=== PATIENT | male | born 1980 | race Caucasian/White ===

== ENCOUNTER 2017-03-27 07:58 | Emergency (ER) | payer OTHER ==
[2017-03-27] MEDS ORDERED: Ondansetron HCl/PF 4 MG/2 ML Vial ONE (08:24)
[2017-03-27] MEDS ORDERED: Ketorolac Tromethamine 30 MG/ML VIAL ONE (08:24)
[2017-03-27 08:32] LABS: #Basophils 0.1 thou/uL (0.0-0.2); #Eosinphils 0.1 thou/uL (0.0-0.7); #Lymphocytes 1.2 thou/uL (1.20-3.40); #Monocytes 0.4 thou/uL (0.11-0.59); %Basophils 0.7 % (0.0-1.0); %Eosinophils 0.8 % (0.0-10.0); %Lymphocytes 13.9 % (21.0-51.0); %Monocytes 4.9 % (0.0-10.0); %Neutrophils 79.8 % (42.0-75.0); Hemoglobin 15.8 g/dL (14.0-18.0); Mean Corpuscular HGB CONC 34.4 g/dL (32.0-36.0); Mean Corpuscular Volume 84.2 fl (80.0-94.0); Mean Platelet Volume 9.4 fL (7.4-10.4); Platelet Count 173 thou/uL (130-400); RBC Distribution Width 11.1 % (11.5-14.5); Red Blood Cell (RBC) Count 5.47 mill/uL (4.70-6.10); White Blood Cell (WBC) Count 8.8 thou/uL (4.8-10.8)
[2017-03-27 08:45] LABS: ALT (SGPT) 43 U/L (8-55); AST (SGOT) 26 U/L (5-34); Albumin 4.3 g/dL (3.5-5.0); Alkaline Phosphatase 83 U/L (40-150); Anion Gap 14 mmol/L (10-20); BUN (Urea Nitrogen) 15 mg/dL (8.9-20.6); Bilirubin, Total 0.6 mg/dL (0.2-1.2); Calc. Creatinine Clearance 0 mL/min (70-130); Calcium 9.6 mg/dL (7.8-10.44); Carbon Dioxide 28 mmol/L (22-29); Chloride 103 mmol/L (98-107); Estimated GFR-MDRD 66; Globulin 2.6 g/dL (2.4-3.5); Glucose 110 mg/dL (70-105); Potassium 4.4 mmol/L (3.5-5.1); Protein, Total 6.9 g/dL (6.0-8.3); Sodium 141 mmol/L (136-145)
--- NOTE | 2017-03-27 09:01 | CT ---
CT OF ABDOMEN AND PELVIS: Date: 03-27-17 Comparison: 02-01-11 History: Right flank pain. Technique: Serial axial CT imaging obtained at 5 mm intervals from lung bases through pubic symphysis without contrast. Coronal reformatted imaging obtained. FINDINGS: The lack of contrast media limits assessment of the viscera, bowel vascular structures, and for lymph adenopathy. Imaged lung bases are unremarkable. Liver, gallbladder, and pancreas appear grossly unremarkable. The spleen measures 15.7 cm in AP dimension, stable. The adrenal glands and gallbladder are grossly unre markable. There is right sided hydronephrosis and perinephric stranding. There is an obstructing ston e within the proximal right ureter on axial image 43/coronal image 69, measuring 4-5 cm in craniocaud al dimension. No additional stone is seen within the right ureter. There is a punctate stone noted within the lower pole of the left kidney. No evidence for obstructive uropathy is noted on the left. The bowel demonstrates no evidence for inflammatory change or obstruction. Osseous structures demonstrate no acute findings. Stable sclerotic focus noted within left sacral ala and left pubic bone suggesting benign bone islands. IMPRESSION: 1. Obstructive uropathy on the right secondary to a 4-5 mm obstructing stone within the proximal righ t ureter. 2. Nonspecific stable splenomegaly. POS: [facility]
== END 2017-03-27 09:34 | disposition home or self-care (01) ==
LOC: SCSER 07:58
DX: N13.2 Hydronephrosis with renal and ureteral calculous obstruction (principal); Z79.899 Other long term (current) drug therapy
CPT/HCPCS: 74176; 80053; 85025; 96361; 96374; 96375; J1885; J2405